=== PATIENT | female | born 1995 | race Caucasian/White ===

== ENCOUNTER 2018-12-21 06:09 | Emergency (ER) | payer MEDICAID ==
[~2018-12-21] VITALS: Ht 152.4 cm; Wt 87.7 kg
[~2018-12-21 06:09] MED LIST: CEPH-569 MT; METH10TA7 MT; METO100T16 PO
[2018-12-21] MEDS ORDERED: ACETAMINOPHEN 325MG TABLET PO STA (06:45)
[2018-12-21 07:30] VITALS: BP 114/71
== END 2018-12-21 08:45 | disposition home or self-care (01) ==
LOC: ER 06:09
DX: J02.9 Acute pharyngitis, unspecified (principal); H66.93 Otitis media, unspecified, bilateral; Z88.8 Allergy status to other drugs, medicaments and biological substances; Z79.899 Other long term (current) drug therapy
CPT/HCPCS: 87070; 87430; 99283; Z7610

== ENCOUNTER 2023-10-20 13:44 | Emergency (ER) | payer MEDICAID, OTHER ==
[~2023-10-20] VITALS: Ht 152.4 cm; Wt 91.0 kg
[~2023-10-20 13:44] MED LIST changes: +METH-372 MT; -METH10TA7 MT
[2023-10-20 13:56] VITALS: O2SAT 96
[2023-10-20 15:12] LABS: BASOPHILS % 0.4 % (0.0-2.0); EOSINOPHILS % 0.9 % (0.0-5.0); HEMATOCRIT. 41.6 % (36.0-48.0); HEMOGLOBIN. 13.6 g/dL (12.0-16.0); LYMPHOCYTES % 19.3 % (20.0-50.0); MEAN CORPUSCULAR HGB CONC 32.6 g/dL (31.0-37.0); MONOCYTES % 4.1 % (2.0-8.0); NEUTROPHILS % 75.3 % (40.0-76.0); PLATELET 516 x1000/uL (130-400); RED BLOOD CELL COUNT 4.84 mill/uL (4.2-5.4); RED CELL DISTRIBUTION WIDTH 13.9 % (11.6-14.6); WHITE BLOOD COUNT 13.2 x1000/uL (4.5-11.0)
[2023-10-20 15:33] LABS: ALANINE AMINOTRANSFERASE 19 IU/L (10-49); ALBUMIN 5.1 g/dL (3.2-4.8); ASPARTATE AMINOTRANSFERASE 16 IU/L (<34); BILIRUBIN TOTAL 0.3 mg/dL (0.1-1.0); CALCIUM 9.2 mg/dL (8.7-10.4); CARBON DIOXIDE 24 mEq/L (21-32); CHLORIDE 107 mEq/L (98-107); CREATININE 0.5 mg/dL (0.6-1.0); GLUCOSE 124 mg/dL (70-105); POTASSIUM 3.5 mEq/L (3.5-5.1); PROTEIN TOTAL 8.2 g/dL (6.0-8.3); SODIUM 140 mEq/L (136-145); THYROID STIMULATING HORMONE 1.24 uIU/mL (0.55-4.78); UREA NITROGEN BLOOD 7 mg/dL (9-23)
[2023-10-20 15:53] LABS: HCG SCREEN NEGATIVE
[2023-10-20 16:39] VITALS: BP 138/70; PULSE 100; RESP 19; TEMP 98.8
== END 2023-10-20 17:20 | disposition home or self-care (01) ==
LOC: ER 13:44
DX: J02.9 Acute pharyngitis, unspecified (principal); E04.9 Nontoxic goiter, unspecified
CPT/HCPCS: 36415; 80053; 84443; 84703; 85025; 99283

== ENCOUNTER 2024-04-04 13:04 | Emergency (ER) | payer OTHER ==
[~2024-04-04] VITALS: Ht 152.4 cm; Wt 80.0 kg
[2024-04-04 13:15] VITALS: O2SAT 96
[2024-04-04 14:20] LABS: BASOPHILS % 0.4 % (0.0-2.0); EOSINOPHILS % 1.5 % (0.0-5.0); HEMATOCRIT. 40.9 % (36.0-48.0); HEMOGLOBIN. 13.8 g/dL (12.0-16.0); LYMPHOCYTES % 38.6 % (20.0-50.0); MEAN CORPUSCULAR HEMOGLOBIN 28.5 pg (28.0-32.0); MEAN CORPUSCULAR HGB CONC 33.7 g/dL (31.0-37.0); MEAN CORPUSCULAR VOLUME 84.6 fL (81.0-99.0); MONOCYTES % 5.3 % (2.0-8.0); NEUTROPHILS % 54.2 % (40.0-76.0); PLATELET 515 x1000/uL (130-400); RED BLOOD CELL COUNT 4.83 mill/uL (4.2-5.4); RED CELL DISTRIBUTION WIDTH 15.6 % (11.6-14.6)
[2024-04-04 14:28] LABS: POTASSIUM 3.6 mEq/L (3.5-5.1)
[2024-04-04 14:29] LABS: CALCIUM 9.7 mg/dL (8.7-10.4)
[2024-04-04 14:34] LABS: CREATININE 1.1 mg/dL (0.6-1.0)
[2024-04-04 14:35] LABS: HCG SCREEN NEGATIVE
[2024-04-04] MEDS: ACETAMINOPHEN 325MG TABLET PO ONE (14:37)
[2024-04-04] MEDS ORDERED: IBUP-2029 MT (17:00)
[2024-04-04 17:20] VITALS: BP 142/80; PULSE 79; RESP 18; TEMP 36.89184; O2SAT 98
== END 2024-04-04 17:25 | disposition home or self-care (01) ==
LOC: ER 13:04
DX: B34.9 Viral infection, unspecified (principal); Z20.822 Contact with and (suspected) exposure to COVID-19
CPT/HCPCS: 36415; 71045; 80048; 84703; 85025; 87426; 93970; 99284

== ENCOUNTER 2025-06-12 21:40 | Emergency (ER) | payer MEDICAID, OTHER ==
[~2025-06-12] VITALS: Ht 162.6 cm; Wt 109.0 kg
[~2025-06-12 21:40] MED LIST changes: +IBUP-1455 MT
[2025-06-12 21:42] VITALS: O2SAT 99
[2025-06-13 00:15] LABS: BASOPHILS % 0.1 % (0.0-2.0); EOSINOPHILS % 1.0 % (0.0-5.0); HEMATOCRIT. 35.7 % (36.0-48.0); HEMOGLOBIN. 11.4 g/dL (12.0-16.0); LYMPHOCYTES % 24.0 % (20.0-50.0); MEAN PLATELET VOLUME 8.3 fl (7.4-10.4); MONOCYTES % 5.2 % (2.0-8.0); NEUTROPHILS % 69.7 % (40.0-76.0); PLATELET 493 x1000/uL (130-400); RED BLOOD CELL COUNT 4.33 mill/uL (4.2-5.4); RED CELL DISTRIBUTION WIDTH 16.6 % (11.6-14.6)
[2025-06-13 00:26] LABS: CREATININE 0.8 mg/dL (0.6-1.0); UREA NITROGEN BLOOD 7 mg/dL (9-23)
[2025-06-13 00:27] LABS: HCG SCREEN NEGATIVE
[2025-06-13] MEDS ORDERED: DEXAMETHASONE 10 MG/ML VIAL IV ONE (00:45)
[2025-06-13] MEDS: KCL 10MEQ/50ML PREMIX 50 ML IV SCH (03:36)
[2025-06-13] MEDS: DEXAMETHASONE 10 MG/ML VIAL IV NR (04:43)
[2025-06-13] MEDS ORDERED: P20 MT (04:53)
[2025-06-13 05:02] VITALS: BP 124/84; PULSE 73; RESP 17; TEMP 36.8; O2SAT 98
[2025-06-13] MEDS ORDERED: IOHEXOL-300 100 ML BOTTLE ONE (07:09)
== END 2025-06-13 05:13 | disposition home or self-care (01) ==
LOC: ER 21:40 → CMPBEDREQ 06-13 07:58
DX: E87.6 Hypokalemia (principal); R06.02 Shortness of breath; C14.0 Malignant neoplasm of pharynx, unspecified; M47.812 Spondylosis without myelopathy or radiculopathy, cervical region; Z85.819 Personal history of malignant neoplasm of unspecified site of lip, oral cavity, and pharynx; Z92.21 Personal history of antineoplastic chemotherapy
CPT/HCPCS: 99291; 80048; 84703; 85025; 36415 ×2; 96365; 70491; 96375; 83735; Q9967; J1100; J3480